=== PATIENT | female | born 2000 | race Two or more races ===

== ENCOUNTER 2021-06-04 12:40 | Emergency (ER) | payer OTHER ==
[2021-06-04 12:59] VITALS: BP 117/64; PULSE 76; TEMP 98; BMI 21.7
== END 2021-06-04 13:10 | disposition home or self-care (01) ==
LOC: JER 12:40
DX: S93.505A Unspecified sprain of left lesser toe(s), initial encounter (principal); W18.43XA Slipping, tripping and stumbling without falling due to stepping from one level to another, initial encounter; Y93.02 Activity, running; Y35.91XA Legal intervention, means unspecified, law enforcement official injured, initial encounter
CPT/HCPCS: 73630-TC-RT-FY; 99283-25

== ENCOUNTER 2021-08-30 15:45 | Emergency (ER) | payer OTHER ==
[2021-08-30 16:03] VITALS: BP 114/71; PULSE 86; TEMP 97.3; BMI 22.4
== END 2021-08-30 17:40 | disposition home or self-care (01) ==
LOC: JERFT 15:45
DX: H61.21 Impacted cerumen, right ear (principal)
CPT/HCPCS: 99282-25